=== PATIENT | female | born 1965 | race Two or more races ===

== ENCOUNTER 2017-05-05 15:56 | Emergency (ER) | payer MEDICARE, MEDICAID ==
[~2017-05-05] VITALS: Ht 162.6 cm; Wt 113.4 kg
[2017-05-05 16:00] VITALS: BP 148/72
== END 2017-05-05 17:09 | disposition home or self-care (01) ==
LOC: ER 15:57
DX: H10.9 Unspecified conjunctivitis (principal); E03.9 Hypothyroidism, unspecified
CPT/HCPCS: A4606; Z7610